=== PATIENT | female | born 1970 | race Caucasian/White ===

== ENCOUNTER 2017-05-29 13:28 | Emergency (ER) | payer OTHER ==
--- NOTE | 2017-05-29 13:47 | EDM.PDOC ---
ED HPI GENERAL MEDICAL PROBLEM - General Chief Complaint: General Stated Complaint: ONCOLOGY PT Time Seen by Provider: 05/29/17 13:33 - History of Present Illness INITIAL COMMENTS - FREE TEXT/NARRATIVE: HISTORY AND PHYSICAL: History of present illness: The patient is a 46-year-old female who has a history of infiltrating ductal carcinoma of bilateral breasts for which she has undergone bilateral mastectomy and chemotherapy/adjuvant hormonal therapy. She had developed metastatic disease to the lymph nodes in January 2015 and was treated again and had liver metastases discovered in July 2015. She was on treatment afterwards which noted good response and she has currently been on oral medications only for chemotherapy since October of this year. Patient was last seen in the clinic and the plan was that since she was asymptomatic from her cancer and tolerating oral therapy was to continue that treatment. Patient has been having several weeks of left rib pain without cough fever or history of trauma and no left upper abdominal pain and her oncologist ordered an outpatient CAT scan which was performed today of the chest abdomen and pelvis. There were no lung findings that were new or different and the cancer findings per the radiologist were stable. Incidentally it was noted the appendix was enlarged and enhancing measuring up to 1.4 cm and there was trace periappendiceal stranding. The patient is now here in the emergency department due to this test results complains of no abdominal pain no nausea no vomiting no diarrhea and no urinary complaints and no fevers. Patient has been eating and drinking normally and is quite confused and perplexed by the CT scan finding. She was advised to come to the ER for further evaluation and care. Patient has been urinating and having normal bowel movements without black or bloody stools no diarrhea or constipation. Review of systems: As per history of present illness and below otherwise all systems reviewed and negative. Past medical history: As per history of present illness and as reviewed below otherwise noncontributory. Surgical history: As per history of present illness and as reviewed below otherwise noncontributory. Social history: No reported history of drug or alcohol abuse. Family history: As per history of present illness and as reviewed below otherwise noncontributory. Physical exam: Gen.: Well-developed well-nourished female who is nontoxic and vital signs are noted by me HEENT: Atraumatic, normocephalic, negative for conjunctival pallor or scleral icterus, mucous membranes moist, throat clear, neck supple, nontender, trachea midline. Lungs: Clear to auscultation, breath sounds equal bilaterally, chest nontender. Heart: S1S2, regular in rhythm no overt murmurs Abdomen: Soft, nondistended, completely nontender on palpation throughout the entire abdomen including the right lower quadrant. Negative for masses or hepatosplenomegaly. Bowel sounds are normoactive Negative for costovertebral tenderness. Pelvis: Stable nontender. Genitourinary: Deferred. Rectal: Deferred. Extremities: Atraumatic, negative for cords or calf pain. Neurovascular unremarkable. Neuro: Awake, alert, oriented. Cranial nerves II through XII unremarkable. Cerebellum unremarkable. Motor and sensory unremarkable throughout. Exam nonfocal. Diagnostics: CBC CMP and CRP lactic acid CAT scan performed today of the chest abdomen and pelvis was reviewed with Dr. [employer]: none 1350: Dr. Ronquillo our surgeon is aware of the CT scan results and would like us to also add to the labs a CRP and lactic acid. I currently have a call out to the patient's oncologist at [facility], Dr. Figueroa, to discuss this case with him. 1400: Case was discussed with the oncologist at [facility], Dr. Figueroa. He says the patient's cancer is very stable and that he has no objections to appendectomy if that is indicated here at our hospital. He says that if the patient is completely asymptomatic and the blood work is normal and the surgeon does not feel surgery is indicated he is comfortable with that as well. He says that her cancer is very stable and there are no plans to change her oral therapy at this time. He is aware of that there is no explanation on this CAT scan for her left rib pain. He is aware that he'll need to follow that up in the clinic. 1408: I did read discussed the CT scan with our radiologist to specifically focus on the left anterior rib/chest wall area and he says he does not see anything acute or abnormal to explain the patient's pain. I will relay this information to the patient. 1437: Case was discussed with Dr. Ronquillo who will see and evaluate the patient and do a formal consult. I will discuss with the patient all the testing results. We have rechecked her blood pressure and pulse and they're still slightly elevated but the patient drank a Red Bull Zinger prior to coming here 1600: Dr. Ronquillo has seen and examined the patient and feels that she is stable to go home. She has been advised on reasons to return to the ER and need to follow-up in the clinic. Impression: Abnormal CT scan of the abdomen and pelvis asymptomatic; history of breast cancer stable Definitive disposition and diagnosis as appropriate pending reevaluation and review of above. Left Chest Pain Score (Numeric/FACES): 3 - Related Data Allergies Allergy/AdvReac Type Severity Reaction Status Date / Time No Known Allergies Allergy Verified 05/29/17 13:39 Home Meds: Home Meds Everolimus [Afinitor] 10 mg PO DAILY 05/29/17 [History] Exemestane [Exemestane] 25 mg PO DAILY 05/29/17 [History] Past Medical History Oncologic (Cancer) History: Reports: Other (See Below) Other Oncologic History: metastatic breast Cancer - Infectious Disease History Infectious Disease History: Reports: Chicken Pox - Past Surgical History Oncologic Surgical History: Reports: None Social & Family History - Family History Family Medical History: Noncontributory - Tobacco Use Smoking Status *Q: Never Smoker - Recreational Drug Use Recreational Drug Use: No ED ROS GENERAL - Review of Systems Review Of Systems: ROS reveals no pertinent complaints other than HPI. ED EXAM, GENERAL - Physical Exam Exam: See Below (see dictation) Course - Vital Signs Last Recorded V/S: Last Vital Signs Temp 36.3 C 05/29/17 13:35 Pulse 92 05/29/17 15:03 Resp 18 05/29/17 15:03 BP 162/108 H 05/29/17 15:03 Pulse Ox 95 05/29/17 15:03 - Orders/Labs/Meds Orders: Active Orders 24 hr Category Date Time Status Notify Provider Consults [RC] ASDIRECTED Care 05/29/17 14:37 Active Consult to Physician [CONS] Stat Cons 05/29/17 14:37 Active Labs: Laboratory Tests 05/29/17 05/29/17 05/29/17 Range/Units 13:54 13:54 13:54 WBC 4.72 (4.0-11.0) K/uL RBC 4.58 (4.30-5.90) M/uL Hgb 12.2 (12.0-16.0) g/dL Hct 35.8 L (36.0-46.0) % MCV 78.2 L (80.0-98.0) fL MCH 26.6 L (27.0-32.0) pg MCHC 34.1 (31.0-37.0) g/dL RDW Std Deviation 39.3 (28.0-62.0) fl RDW Coeff of Wanda 14 (11.0-15.0) % Plt Count 115 L (150-400) K/uL MPV 10.50 (7.40-12.00) fL Neut % (Auto) 63.2 (48.0-80.0) % Lymph % (Auto) 29.0 (16.0-40.0) % [place] % (Auto) 4.9 (0.0-15.0) % Eos % (Auto) 2.1 (0.0-7.0) % Baso % (Auto) 0.8 (0.0-1.5) % Neut # (Auto) 3.0 (1.4-5.7) K/uL Lymph # (Auto) 1.4 (0.6-2.4) K/uL [place] # (Auto) 0.2 (0.0-0.8) K/uL Eos # (Auto) 0.1 (0.0-0.7) K/uL Baso # (Auto) 0.0 (0.0-0.1) K/uL Nucleated RBC % 0.0 /100WBC Nucleated RBCs # 0 K/uL Lactate 1.1 (0.20-2.00) mmol/L Sodium 140 (136-146) mmol/L Potassium 3.8 (3.5-5.1) mmol/L Chloride 109 (98-110) mmol/L Carbon Dioxide 24 (21-31) mmol/L BUN 11 (6.0-23.0) mg/dL Creatinine 0.9 (0.6-1.5) mg/dL Est Cr Clr Drug Dosing 77.57 mL/min Estimated GFR (MDRD) > 60.0 ml/min Glucose 133 H (60-110) mg/dL Calcium 8.5 L (8.8-10.8) mg/dL Total Bilirubin 0.5 (0.1-1.5) mg/dL AST 63 H (5-40) IU/L ALT 109 H (8-54) IU/L Alkaline Phosphatase 97 (40-150) C-Reactive Protein 3.46 H (0.0-0.5) mg/dL Total Protein 6.6 (6.0-8.0) g/dL Albumin 3.7 (3.5-5.0) g/dL Globulin 2.9 (2.0-3.5) g/dL Albumin/Globulin Ratio 1.3 (1.3-2.8) Departure - Departure Time of Disposition: 16:21 Disposition: Home, Self-Care 01 Condition: Good Clinical Impression: Abnormal CT scan - Discharge Information Referrals: Gene Cortez MD [Primary Care Provider] - Forms: ED Department Discharge Additional Instructions: The following information is given to patients seen in the emergency department who are being discharged to home. This information is to outline your options for follow-up care. We provide all patients seen in our emergency department with a follow-up referral. The need for follow-up, as well as the timing and circumstances, are variable depending upon the specifics of your emergency department visit. If you don't have a primary care physician on staff, we will provide you with a referral. We always advise you to contact your personal physician following an emergency department visit to inform them of the circumstance of the visit and for follow-up with them and/or the need for any referrals to a consulting specialist. The emergency department will also refer you to a specialist when appropriate. This referral assures that you have the opportunity for followup care with a specialist. All of these measure are taken in an effort to provide you with optimal care, which includes your followup. Under all circumstances we always encourage you to contact your private physician who remains a resource for coordinating your care. When calling for followup care, please make the office aware that this follow-up is from your recent emergency room visit. If for any reason you are refused follow-up, please contact the [facility] emergency department at and ask to speak to the emergency department charge nurse. [facility] Professional Building [address] [place] [id number] Please contact and follow-up with Dr. Ronquillo in the clinic next week as he advise you. Return to ER as needed and as discussed. Please also discuss with your oncologist the discomfort at the ribs that you're having. - My Orders Last 24 Hours: My Active Orders 05/29/17 14:37 Notify Provider Consults [RC] ASDIRECTED Consult to Physician [CONS] Stat - Assessment/Plan Last 24 Hours: My Active Orders 05/29/17 14:37 Notify Provider Consults [RC] ASDIRECTED Consult to Physician [CONS] Stat
[2017-05-29 14:22] LABS: CHLORIDE,CL 109 mmol/L (98-110); SODIUM,NA 140 mmol/L (136-146)
[2017-05-29 15:03] VITALS: BP 162/108
--- NOTE | 2017-05-29 15:19 | PCM.CONS ---
<Perfecto Proctor - Last Filed: 05/29/17 16:51> H&P History of Present Illness - General Date of Service: 05/29/17 Admit Problem/Dx: Left Rib Pain Source of Information: Patient History Limitations: Reports: No Limitations - History of Present Illness Initial Comments - Free Text/Narative: Ms Anthony is a 46 year old female who presents with her boyfriend who has a significant PMH of bilateral infiltrating ductal carcinoma, ER+, NE+ HER2 Nu negative Breast Cancer who underwent bilateral mastectomy in 2013 who is currently on a chemotherapy regimen. She presented to the ED for ongoing left rib pain after having an URI about 10 days ago. During a CT workup she was found to have an enlarged appendix, enhancing with a trace juan pablo-appendiceal stranding leading to a Consult. She states she has had temperature swings since starting her current chemotherapy regimen as well as nauea but denies any increase in these symptoms over the last few days. Onset of Symptoms: Reports: Gradual Duration of Symptoms: Reports: Intermittent (Worsened by lying supine and deep breathing ) Location: Reports: Chest (Left chest overlying ribs 5-8) Quality: Reports: Ache Severity: Moderate Improves with: Reports: Other (Sitting up) Worsens with: Reports: Breathing (Deep breathing) Associated Symptoms: Reports: No Other Symptoms Left Chest Pain Score (Numeric/FACES): 3 - Related Data Allergies/Adverse Reactions: Allergies Allergy/AdvReac Type Severity Reaction Status Date / Time No Known Allergies Allergy Verified 05/29/17 13:39 Home Medications: Home Meds Everolimus [Afinitor] 10 mg PO DAILY 05/29/17 [History] Exemestane [Exemestane] 25 mg PO DAILY 05/29/17 [History] Past Medical History Oncologic (Cancer) History: Reports: Other (See Below) Other Oncologic History: metastatic breast Cancer - Infectious Disease History Infectious Disease History: Reports: Chicken Pox - Past Surgical History Oncologic Surgical History: Reports: None Social & Family History - Family History Family Medical History: Noncontributory - Tobacco Use Smoking Status *Q: Never Smoker - Recreational Drug Use Recreational Drug Use: No H&P Review of Systems - Review of Systems: Review Of Systems: See Below General: Reports: Other (See HPI) HEENT: Reports: Other Pulmonary: Reports: Other (See HPI) Cardiovascular: Denies: Palpitations (See HPI) Gastrointestinal: Denies: Abdominal Pain, Black Stool, Bloody Stool, Constipation, Diarrhea, Decreased Appetite Genitourinary: Reports: No Symptoms Musculoskeletal: Reports: Other (See HPI) Skin: Reports: No Symptoms Psychiatric: Reports: No Symptoms Neurological: Reports: No Symptoms Hematologic/Lymphatic: Reports: Other (See HPI, currently on chemotherapy for breast cancer) Immunologic: Reports: Other (see HPI, currently on chemotherapy for breast cancer) Exam - Exam Exam: See Below - Vital Signs Vital Signs: Last Vital Signs Temp 36.3 C 05/29/17 13:35 Pulse 92 05/29/17 15:03 Resp 18 05/29/17 15:03 BP 162/108 H 05/29/17 15:03 Pulse Ox 95 05/29/17 15:03 Weight: 255 lb 4.725 oz - Exam Quality Assessment: No: Supplemental Oxygen, Urinary Catheter General: Alert, Oriented, Mild Distress HEENT: Conjunctiva Clear, EOMI, Hearing Intact, Nares Patent Lungs: Clear to Auscultation, Normal Respiratory Effort, Other (Pain to left ribcage upon deep inspiration) Cardiovascular: Regular Rhythm, Tachycardia GI/Abdominal Exam: Normal Bowel Sounds, Soft, Non-Tender, No Distention Extremities: Other (Edema to right upper extremity ) Psychiatric: Alert, Normal Affect, Normal Mood - Patient Data Lab Results Last 24 hrs: Laboratory Results - last 24 hr 05/29/17 05/29/17 05/29/17 Range/Units 13:54 13:54 13:54 WBC 4.72 (4.0-11.0) K/uL RBC 4.58 (4.30-5.90) M/uL Hgb 12.2 (12.0-16.0) g/dL Hct 35.8 L (36.0-46.0) % MCV 78.2 L (80.0-98.0) fL MCH 26.6 L (27.0-32.0) pg MCHC 34.1 (31.0-37.0) g/dL RDW Std Deviation 39.3 (28.0-62.0) fl RDW Coeff of Wanda 14 (11.0-15.0) % Plt Count 115 L (150-400) K/uL MPV 10.50 (7.40-12.00) fL Neut % (Auto) 63.2 (48.0-80.0) % Lymph % (Auto) 29.0 (16.0-40.0) % [place] % (Auto) 4.9 (0.0-15.0) % Eos % (Auto) 2.1 (0.0-7.0) % Baso % (Auto) 0.8 (0.0-1.5) % Neut # (Auto) 3.0 (1.4-5.7) K/uL Lymph # (Auto) 1.4 (0.6-2.4) K/uL [place] # (Auto) 0.2 (0.0-0.8) K/uL Eos # (Auto) 0.1 (0.0-0.7) K/uL Baso # (Auto) 0.0 (0.0-0.1) K/uL Nucleated RBC % 0.0 /100WBC Nucleated RBCs # 0 K/uL Lactate 1.1 (0.20-2.00) mmol/L Sodium 140 (136-146) mmol/L Potassium 3.8 (3.5-5.1) mmol/L Chloride 109 (98-110) mmol/L Carbon Dioxide 24 (21-31) mmol/L BUN 11 (6.0-23.0) mg/dL Creatinine 0.9 (0.6-1.5) mg/dL Est Cr Clr Drug Dosing 77.57 mL/min Estimated GFR (MDRD) > 60.0 ml/min Glucose 133 H (60-110) mg/dL Calcium 8.5 L (8.8-10.8) mg/dL Total Bilirubin 0.5 (0.1-1.5) mg/dL AST 63 H (5-40) IU/L ALT 109 H (8-54) IU/L Alkaline Phosphatase 97 (40-150) C-Reactive Protein 3.46 H (0.0-0.5) mg/dL Total Protein 6.6 (6.0-8.0) g/dL Albumin 3.7 (3.5-5.0) g/dL Globulin 2.9 (2.0-3.5) g/dL Albumin/Globulin Ratio 1.3 (1.3-2.8) Result Diagrams: 05/29/17 13:54 05/29/17 13:54 Consult PN Assessment/Plan Procedures: Procedures BLOOD CULTURE FOR BACTERIA (05/11/14) BONE IMAGING WHOLE BODY (08/15/15) C-REACTIVE PROTEIN (05/22/17) CARCINOEMBRYONIC ANTIGEN (03/24/17) CHEMO HORMON ANTINEOPL SQ/IM (08/16/15) CHEMO IV INFUSION 1 HR (11/17/13) COMPLETE CBC W/AUTO DIFF WBC (05/22/17) COMPREHEN METABOLIC PANEL (04/07/17) CT ABDOMEN W/DYE (05/14/16) CT THORAX W/DYE (02/02/15) CYTOPATH EVAL FNA REPORT (09/05/14) DRAIN BREAST LESION ADD-ON (09/05/14) DRAW BLOOD OFF VENOUS DEVICE (05/11/14) DXA BONE DENSITY AXIAL (04/14/14) ECHO EXAM OF ABDOMEN (08/23/15) EMERGENCY DEPT VISIT (07/21/16) EXTREMITY STUDY (04/08/17) HPV DNA AMP PROBE (05/09/14) IMMUNOASSAY TUMOR CA 15-3 (04/07/17) LACTATE (LD) (LDH) ENZYME (02/02/15) MANUAL THERAPY 1/> REGIONS (05/18/17) MICROSOMAL ANTIBODY EACH (11/10/13) NEEDLE BIOPSY OF LIVER (09/06/15) OT EVAL LOW COMPLEX 30 MIN (05/18/17) PET IMAGE W/CT SKULL-THIGH (08/16/15) PROTHROMBIN TIME (02/02/15) ROUTINE VENIPUNCTURE (05/22/17) SURGICAL PATH GROSS (05/25/14) THERAPEUTIC ACTIVITIES (05/18/17) THROMBOPLASTIN TIME PARTIAL (02/02/15) TISSUE EXAM BY PATHOLOGIST (09/06/15) TX/PRO/DX INJ NEW DRUG ADDON (11/17/13) TX/PROPH/DG ADDL SEQ IV INF (11/17/13) ULTRASOUND BREAST COMPLETE (08/14/14) X-RAY EXAM OF FOOT (04/22/17) (1) Abnormal CT scan SNOMED Code(s): 348612927 Code(s): R93.8 - ABNORMAL FINDINGS ON DIAGNOSTIC IMAGING OF BODY STRUCTURES Assessment:: Ms Anthony is a a 46 year old female with a significant PMH of bilateral breast cancer s/p bilateral skin sparing mastectomies who is currently undergoing chemotherapy. She presents for with a history of left sided rib pain worsened on deep inspiration and lying back which began after suffering from an URI. During CT examination she was found to have an enlarged appendix with stranding. She denies increased fevers or nausea more than her baseline on her chemotherapy regimen. Her WBC is within normal limits, CRP is elevated, lactate within normal limits, currently afebrile with tachycardia and hypertension while having pain to her rib cage. She has no pain to her abdomen on palpation. Problem List Initiated/Reviewed/Updated: Yes Plan: At this time, we would not recommend appendectomy due to the patient's benign abdominal exam, lack of fever, lack of leukocytes, lack of increased nausea, continued appetite. We discussed at length symptoms to watch for that may signal appendicitis and to return to the ED should the symptoms arise. The patient and her boyfriend's questions were answered and they agreed to the above listed plan. <Adin Ronquillo - Last Filed: 05/29/17 17:11> H&P Review of Systems - Review of Systems: Review Of Systems: See Below Exam - Exam Exam: See Below - Vital Signs Vital Signs: Last Vital Signs Temp 97.4 F 05/29/17 13:35 Pulse 92 05/29/17 15:03 Resp 18 05/29/17 15:03 BP 162/108 H 05/29/17 15:03 Pulse Ox 95 05/29/17 15:03 - Patient Data Lab Results Last 24 hrs: Laboratory Results - last 24 hr 05/29/17 05/29/17 05/29/17 Range/Units 13:54 13:54 13:54 WBC 4.72 (4.0-11.0) K/uL RBC 4.58 (4.30-5.90) M/uL Hgb 12.2 (12.0-16.0) g/dL Hct 35.8 L (36.0-46.0) % MCV 78.2 L (80.0-98.0) fL MCH 26.6 L (27.0-32.0) pg MCHC 34.1 (31.0-37.0) g/dL RDW Std Deviation 39.3 (28.0-62.0) fl RDW Coeff of Wanda 14 (11.0-15.0) % Plt Count 115 L (150-400) K/uL MPV 10.50 (7.40-12.00) fL Neut % (Auto) 63.2 (48.0-80.0) % Lymph % (Auto) 29.0 (16.0-40.0) % [place] % (Auto) 4.9 (0.0-15.0) % Eos % (Auto) 2.1 (0.0-7.0) % Baso % (Auto) 0.8 (0.0-1.5) % Neut # (Auto) 3.0 (1.4-5.7) K/uL Lymph # (Auto) 1.4 (0.6-2.4) K/uL [place] # (Auto) 0.2 (0.0-0.8) K/uL Eos # (Auto) 0.1 (0.0-0.7) K/uL Baso # (Auto) 0.0 (0.0-0.1) K/uL Nucleated RBC % 0.0 /100WBC Nucleated RBCs # 0 K/uL Lactate 1.1 (0.20-2.00) mmol/L Sodium 140 (136-146) mmol/L Potassium 3.8 (3.5-5.1) mmol/L Chloride 109 (98-110) mmol/L Carbon Dioxide 24 (21-31) mmol/L BUN 11 (6.0-23.0) mg/dL Creatinine 0.9 (0.6-1.5) mg/dL Est Cr Clr Drug Dosing 77.57 mL/min Estimated GFR (MDRD) > 60.0 ml/min Glucose 133 H (60-110) mg/dL Calcium 8.5 L (8.8-10.8) mg/dL Total Bilirubin 0.5 (0.1-1.5) mg/dL AST 63 H (5-40) IU/L ALT 109 H (8-54) IU/L Alkaline Phosphatase 97 (40-150) C-Reactive Protein 3.46 H (0.0-0.5) mg/dL Total Protein 6.6 (6.0-8.0) g/dL Albumin 3.7 (3.5-5.0) g/dL Globulin 2.9 (2.0-3.5) g/dL Albumin/Globulin Ratio 1.3 (1.3-2.8) Result Diagrams: 05/29/17 13:54 05/29/17 13:54 Consult PN Assessment/Plan Procedures: Procedures BLOOD CULTURE FOR BACTERIA (05/11/14) BONE IMAGING WHOLE BODY (08/15/15) C-REACTIVE PROTEIN (05/22/17) CARCINOEMBRYONIC ANTIGEN (03/24/17) CHEMO HORMON ANTINEOPL SQ/IM (08/16/15) CHEMO IV INFUSION 1 HR (11/17/13) COMPLETE CBC W/AUTO DIFF WBC (05/22/17) COMPREHEN METABOLIC PANEL (04/07/17) CT ABDOMEN W/DYE (05/14/16) CT THORAX W/DYE (02/02/15) CYTOPATH EVAL FNA REPORT (09/05/14) DRAIN BREAST LESION ADD-ON (09/05/14) DRAW BLOOD OFF VENOUS DEVICE (05/11/14) DXA BONE DENSITY AXIAL (04/14/14) ECHO EXAM OF ABDOMEN (08/23/15) EMERGENCY DEPT VISIT (07/21/16) EXTREMITY STUDY (04/08/17) HPV DNA AMP PROBE (05/09/14) IMMUNOASSAY TUMOR CA 15-3 (04/07/17) LACTATE (LD) (LDH) ENZYME (02/02/15) MANUAL THERAPY 1/> REGIONS (05/18/17) MICROSOMAL ANTIBODY EACH (11/10/13) NEEDLE BIOPSY OF LIVER (09/06/15) OT EVAL LOW COMPLEX 30 MIN (05/18/17) PET IMAGE W/CT SKULL-THIGH (08/16/15) PROTHROMBIN TIME (02/02/15) ROUTINE VENIPUNCTURE (05/22/17) SURGICAL PATH GROSS (05/25/14) THERAPEUTIC ACTIVITIES (05/18/17) THROMBOPLASTIN TIME PARTIAL (02/02/15) TISSUE EXAM BY PATHOLOGIST (09/06/15) TX/PRO/DX INJ NEW DRUG ADDON (11/17/13) TX/PROPH/DG ADDL SEQ IV INF (11/17/13) ULTRASOUND BREAST COMPLETE (08/14/14) X-RAY EXAM OF FOOT (04/22/17) (1) Abnormal CT scan SNOMED Code(s): 254133767 Code(s): R93.8 - ABNORMAL FINDINGS ON DIAGNOSTIC IMAGING OF BODY STRUCTURES Priority: Medium Problem List Initiated/Reviewed/Updated: Yes Plan: Patient seen and examined with Dr. Proctor. I agree with his assessment and plan.
== END 2017-05-29 16:29 | disposition home or self-care (01) ==
LOC: MW.ED 13:28
DX: R93.5 Abnormal findings on diagnostic imaging of other abdominal regions, including retroperitoneum (principal); C50.912 Malignant neoplasm of unspecified site of left female breast; C50.911 Malignant neoplasm of unspecified site of right female breast; C78.7 Secondary malignant neoplasm of liver and intrahepatic bile duct; Z90.13 Acquired absence of bilateral breasts and nipples; Z79.899 Other long term (current) drug therapy
CPT/HCPCS: 36415; 80053; 83605; 85025; 86140; 99284

== ENCOUNTER 2018-09-01 13:34 | Emergency (ER) | payer OTHER ==
[2018-09-01] MEDS ORDERED: Sodium Chloride 0.9% 2.5 ML Syringe FLUSH PRN (14:00)
[2018-09-01] MEDS ORDERED: Sodium Chloride 0.9% 10 ML Syringe FLUSH PRN (14:00)
[2018-09-01] MEDS ORDERED: Piperacillin/Tazobactam 3.375 GM in Sodium Chloride 0.9% 50 ML IV ONE (14:00)
[2018-09-01] MEDS ORDERED: Sodium Chloride 0.9% 1,000 ML IV ONE (14:54)
[2018-09-01] MEDS ORDERED: Ondansetron 4 MG/2 ML SDV IVPUSH ONE (14:55)
[2018-09-01] MEDS ORDERED: HYDROmorphone 1 MG/ML Syringe IVPUSH ONE (14:55)
--- NOTE | 2018-09-01 15:00 | EDM.PDOC ---
ED HPI GENERAL MEDICAL PROBLEM - General Chief Complaint: Abdominal Pain Stated Complaint: ABDOMINAL PAIN Time Seen by Provider: 09/01/18 13:58 Source of Information: Reports: Patient History Limitations: Reports: No Limitations - History of Present Illness INITIAL COMMENTS - FREE TEXT/NARRATIVE: History of present illness: []Patient was diagnosed with breast cancer in 2013 and has had multiple therapies despite this has developed metastases to the liver she is currently on hold for chemotherapy secondary to staph sepsis developed in June 2018. Patient saw Dr. Figueroa yesterday with a complaint of abdominal pain and had a workup done with CT of the abdomen and blood work. CT came back with acute appendicitis area appendiceal stranding and fluid also noted was mildly worsening hepatic metastatic disease enlarging subcarinal and retroperitoneal lymphadenopathy. Patient was sent to the emergency room to be transferred to [facility] for an appendectomy. Review of systems: As per history of present illness and below otherwise all systems reviewed and negative. Past medical history: As per history of present illness and as reviewed below otherwise noncontributory. Surgical history: As per history of present illness and as reviewed below otherwise noncontributory. Social history: No reported history of drug or alcohol abuse. Family history: As per history of present illness and as reviewed below otherwise noncontributory. Physical exam: General: Well developed, well nourished in NAD HEENT: Atraumatic, normocephalic, pupils reactive, negative for conjunctival pallor or scleral icterus, mucous membranes moist, throat clear, neck supple, nontender, trachea midline. Lungs: Clear to auscultation, breath sounds equal bilaterally, chest nontender. Heart: S1S2, regular, negative for clicks, rubs, or JVD. Abdomen: NABS, Soft, nondistended, diffusely tender abdomen without rebound or guarding. Negative for masses or hepatosplenomegaly. Negative for costovertebral tenderness. Pelvis: Stable nontender. Genitourinary: Deferred. Rectal: Deferred. Extremities: Atraumatic, negative for cords or calf pain. Neurovascular unremarkable. Neuro: Awake, alert, oriented. Cranial nerves II through XII unremarkable. Cerebellum unremarkable. Motor and sensory unremarkable throughout. Exam nonfocal. Skin:warm and dry Diagnostics: Repeat CBC, chemistry were done Therapeutics: IV hydration, Dilaudid, Zofran, Zosyn ED Course: 14:49-consulted [facility] to arrange transfer. they are currently working on another call and will be calling us back. Impression: Acute appendicitis, breast cancer with metastatic disease Prescriptions: Plan: Patient is being transferred to [facility] Definitive disposition and diagnosis as appropriate pending reevaluation and review of above. Lower Abdominal Pain Score (Numeric/FACES): 8 - Related Data Allergies Allergy/AdvReac Type Severity Reaction Status Date / Time latex Allergy Rash Verified 09/01/18 14:45 Home Meds: Home Meds Carvedilol 25 mg PO BID 07/21/18 [History] Chlorthalidone 50 mg PO QAM 07/21/18 [History] DAPTOmycin [Daptomycin] 700 mg IV DAILY 07/21/18 [History] Docusate Sodium 100 mg PO BID PRN 07/21/18 [History] Ibuprofen 400 mg PO Q6H 07/21/18 [History] Ondansetron HCl/PF [Ondansetron HCl 4 mg/2 ml Syr] 4 mg IVPUSH Q4H 07/21/18 [ History] Potassium Chloride 10 meq PO DAILY 07/21/18 [History] Spironolactone 100 mg PO DAILY 07/21/18 [History] Temazepam 15 mg PO BEDTIME PRN 07/21/18 [History] Vancomycin 5.5 mg ICATH Q24H 07/21/18 [History] amLODIPine Besylate [Amlodipine Besylate] 10 mg PO DAILY 07/21/18 [History] oxyCODONE 5 mg PO Q4H PRN 07/21/18 [History] rifAMPin [Rifampin] 300 mg PO BID 07/21/18 [History] Past Medical History HEENT History: Reports: None Cardiovascular History: Reports: Hypertension Respiratory History: Reports: None Gastrointestinal History: Reports: None Genitourinary History: Reports: None [employer] History: Reports: Musculoskeletal History: Reports: None Neurological History: Reports: None Psychiatric History: Reports: None Endocrine/Metabolic History: Reports: None Hematologic History: Reports: None Immunologic History: Reports: None Other Immunologic History: Is currently under chemo for breast CA Oncologic (Cancer) History: Reports: Other (See Below) Other Oncologic History: metastatic breast Cancer Dermatologic History: Reports: None - Infectious Disease History Infectious Disease History: Reports: Chicken Pox - Past Surgical History Female Surgical History: Reports: None Oncologic Surgical History: Reports: Mastectomy, Other (See Below) Other Oncologic Surgeries/Procedures: lympho adenopathy right arm Social & Family History - Family History Family Medical History: Noncontributory - Tobacco Use Smoking Status *Q: Never Smoker - Caffeine Use Caffeine Use: Reports: Soda - Recreational Drug Use Recreational Drug Use: No ED ROS GENERAL - Review of Systems Review Of Systems: ROS reveals no pertinent complaints other than HPI. ED EXAM, GI/ABD - Physical Exam Exam: See Below (See history of present illness) Course - Vital Signs Last Recorded V/S: Last Vital Signs Temp 98.3 F 09/01/18 14:40 Pulse 127 H 09/01/18 14:40 Resp 18 09/01/18 14:40 BP 167/116 H 09/01/18 14:40 Pulse Ox 99 09/01/18 14:40 - Orders/Labs/Meds Orders: Active Orders 24 hr Category Date Time Status Sodium Chloride 0.9% [Saline Flush] Med 09/01/18 14:00 Active 10 ml FLUSH ASDIRECTED PRN Sodium Chloride 0.9% [Saline Flush] Med 09/01/18 14:00 Active 2.5 ml FLUSH ASDIRECTED PRN Saline Lock Insert [OM.PC] Stat Oth 09/01/18 13:59 Ordered Medication Orders Sodium Chloride (Saline Flush) 10 ml FLUSH ASDIRECTED PRN PRN Reason: Keep Vein Open Last Admin: 09/01/18 15:34 Dose: 10 ml Sodium Chloride (Saline Flush) 2.5 ml FLUSH ASDIRECTED PRN PRN Reason: Keep Vein Open Last Admin: 09/01/18 15:33 Dose: 2.5 ml Labs: Laboratory Tests 09/01/18 09/01/18 Range/Units 14:55 14:55 WBC 8.62 (4.0-11.0) K/uL RBC 3.62 L (4.30-5.90) M/uL Hgb 11.3 L (12.0-16.0) g/dL Hct 33.3 L (36.0-46.0) % MCV 92.0 (80.0-98.0) fL MCH 31.2 (27.0-32.0) pg MCHC 33.9 (31.0-37.0) g/dL RDW Std Deviation 42.7 (28.0-62.0) fl RDW Coeff of Wanda 13 (11.0-15.0) % Plt Count 71 L (150-400) K/uL Neut % (Auto) 78.9 (48.0-80.0) % Lymph % (Auto) 11.9 L (16.0-40.0) % [place] % (Auto) 8.7 (0.0-15.0) % Eos % (Auto) 0.3 (0.0-7.0) % Baso % (Auto) 0.2 (0.0-1.5) % Neut # (Auto) 6.8 H (1.4-5.7) K/uL Lymph # (Auto) 1.0 (0.6-2.4) K/uL [place] # (Auto) 0.8 (0.0-0.8) K/uL Eos # (Auto) 0.0 (0.0-0.7) K/uL Baso # (Auto) 0.0 (0.0-0.1) K/uL Nucleated RBC % 0.0 /100WBC Nucleated RBCs # 0 K/uL Sodium 139 (136-145) mmol/L Potassium 3.4 L (3.5-5.1) mmol/L Chloride 104 (98-107) mmol/L Carbon Dioxide 23.8 (21.0-32.0) mmol/L BUN 21 H (7.0-18.0) mg/dL Creatinine 1.0 (0.6-1.0) mg/dL Est Cr Clr Drug Dosing 68.36 mL/min Estimated GFR (MDRD) 59.7 ml/min Glucose 84 (74-106) mg/dL Calcium 8.8 (8.5-10.1) mg/dL Total Bilirubin 1.5 H (0.2-1.0) mg/dL AST 86 H (15-37) IU/L ALT 37 (14-63) IU/L Alkaline Phosphatase 180 H (46-116) U/L Total Protein 6.0 L (6.4-8.2) g/dL Albumin 2.6 L (3.4-5.0) g/dL Globulin 3.4 (2.6-4.0) g/dL Albumin/Globulin Ratio 0.8 L (0.9-1.6) Meds: Medications Generic Name Dose Route Start Last Admin Trade Name Freq PRN Reason Stop Dose Admin Sodium Chloride 10 ml 09/01/18 14:00 09/01/18 15:34 Saline Flush FLUSH 10 ml ASDIRECTED PRN Administration Keep Vein Open Sodium Chloride 2.5 ml 09/01/18 14:00 09/01/18 15:33 Saline Flush FLUSH 2.5 ml ASDIRECTED PRN Administration Keep Vein Open Discontinued Medications Generic Name Dose Route Start Last Admin Trade Name Freq PRN Reason Stop Dose Admin Hydromorphone HCl 0.5 mg 09/01/18 14:55 09/01/18 15:14 Dilaudid IVPUSH 09/01/18 14:56 0.5 mg ONETIME ONE Administration Piperacillin Sod/Tazobactam 50 mls @ 100 mls/hr 09/01/18 14:00 09/01/18 15:24 Sod 3.375 gm/ Sodium Chloride IV 09/01/18 14:29 100 mls/hr ONETIME ONE Administration Sodium Chloride 1,000 mls @ 999 mls/hr 09/01/18 14:54 09/01/18 15:25 Normal Saline IV 09/01/18 15:54 999 mls/hr .Bolus ONE Administration Ondansetron HCl 4 mg 09/01/18 14:55 09/01/18 15:14 Zofran IVPUSH 09/01/18 14:56 4 mg ONETIME ONE Administration Departure - Departure Time of Disposition: 18:03 Disposition: Home, Self-Care 01 Condition: Good Clinical Impression: Appendicitis Qualifiers: Appendicitis type: acute appendicitis Acute appendicitis type: with localized peritonitis Appendicitis gangrene presence: without gangrene Appendicitis perforation presence: without perforation Appendicitis abscess presence: without abscess Qualified Code(s): K35.30 - Acute appendicitis with localized peritonitis, without perforation or gangrene - Discharge Information *PRESCRIPTION DRUG MONITORING PROGRAM REVIEWED*: No *COPY OF PRESCRIPTION DRUG MONITORING REPORT IN PATIENT CARMEN: No Referrals: PCP,None [Primary Care Provider] - Forms: ED Department Discharge - My Orders Last 24 Hours: My Active Orders 09/01/18 13:59 Saline Lock Insert [OM.PC] Stat 09/01/18 14:00 Sodium Chloride 0.9% [Saline Flush] 10 ml FLUSH ASDIRECTED PRN Sodium Chloride 0.9% [Saline Flush] 2.5 ml FLUSH ASDIRECTED PRN - Assessment/Plan Last 24 Hours: My Active Orders 09/01/18 13:59 Saline Lock Insert [OM.PC] Stat 09/01/18 14:00 Sodium Chloride 0.9% [Saline Flush] 10 ml FLUSH ASDIRECTED PRN Sodium Chloride 0.9% [Saline Flush] 2.5 ml FLUSH ASDIRECTED PRN
[2018-09-01 18:18] VITALS: BP 166/105
== END 2018-09-01 18:20 ==
LOC: MW.ED 13:34
DX: K35.30 Acute appendicitis with localized peritonitis, without perforation or gangrene (principal); C50.919 Malignant neoplasm of unspecified site of unspecified female breast; C79.9 Secondary malignant neoplasm of unspecified site; I10 Essential (primary) hypertension; Z79.899 Other long term (current) drug therapy; Z91.040 Latex allergy status
CPT/HCPCS: 36415; 80053; 85025; 96361; 96365; 96375; 99285; J1170; J2405; J2543; J7040; J7050